=== PATIENT | male | born 1990 ===

== ENCOUNTER 2021-09-01 03:12 | Emergency (ER) | payer OTHER ==
[~2021-09-01] VITALS: Ht 172.7 cm; Wt 71.7 kg
[2021-09-01] MEDS ORDERED: PHENAGIL TABLE1 EACH PO (04:17)
[2021-09-01] MEDS ORDERED: ORASEP SPRAY30 ML MM (04:17)
== END 2021-09-01 04:29 ==
LOC: ER 03:12
DX: U07.1 COVID-19 (principal); R53.81 Other malaise